=== PATIENT | female | born 1940 | race Caucasian/White ===

== ENCOUNTER 2020-10-05 12:18 | Emergency (ER) | payer MEDICARE ==
--- NOTE | 2020-10-05 13:36 | ER Document Report ---
ED Medical Screen (RME) - General Chief Complaint: Pain All Over Stated Complaint: BODY PAIN,CONFUSION Time Seen by Provider: 10/05/20 13:23 - HPI Notes: Patient is a 80-year-old female with a history of CABG, mechanical valve repl acement, scleroderma, BLACK, and diabetes who presents with diffuse body aches and back pain that has been worsening in the last couple days and is no longer being managed with her pain medication. Patient also reports chest discomfort, shortness of breath and increased confusion that has been worsening for the past couple of weeks. Patient is visiting from [place] and has been in contact with her PCP. Her PCP is concerned about ALS and would like a nerve conduction study done. Patient denies abdominal pain, vomiting and diarrhea. Physical Exam - Vital signs Vitals: Temp Pulse Resp BP Pulse Ox 97.5 F 85 16 121/63 100 10/05/20 12:42 10/05/20 12:42 10/05/20 12:42 10/05/20 12:42 10/05/20 12:42 - Respiratory Respiratory status: No respiratory distress Breath sounds: Normal - Cardiovascular Rhythm: Regular Heart sounds: Normal auscultation Course - Re-evaluation Re-evalutation: I have greeted and performed a rapid initial assessment of this patient. A comprehensive ED assessment and evaluation of the patient, analysis of test results and completion of medical decision making process will be conducted by an additional ED providers. - Vital Signs Vital signs: Temp Pulse Resp BP Pulse Ox 97.5 F 85 16 121/63 100 10/05/20 12:42 10/05/20 12:42 10/05/20 12:42 10/05/20 12:42 10/05/20 12:42
--- NOTE | 2020-10-05 14:11 | RADIOLOGY REPORT (SQ) ---
EXAM DESCRIPTION: CHEST SINGLE VIEW IMAGES COMPLETED DATE/TIME: 10/05/2020 12:51 pm REASON FOR STUDY: shortness of breath COMPARISON: None. EXAM PARAMETERS: NUMBER OF VIEWS: One view. TECHNIQUE: Single frontal radiographic view of the chest acquired. RADIATION DOSE: NA LIMITATIONS: None. FINDINGS: LUNGS AND PLEURA: No opacities, masses or pneumothorax. No pleural effusion. MEDIASTINUM AND HILAR STRUCTURES: Postoperative changes in the mediastinum. No mediastinal mass or a denopathy. HEART AND VASCULAR STRUCTURES: Valve replacement and postoperative changes of CABG. Heart has normal size. No pulmonary vascular congestion. BONES: No acute findings. HARDWARE: None in the chest. OTHER: No other significant finding. IMPRESSION: NO ACUTE RADIOGRAPHIC FINDING IN THE CHEST. TECHNICAL DOCUMENTATION: JOB ID: [id number] 2010 [employer]- All Rights Reserved Reading location - IP/workstation name: [email or web address]
[2020-10-05 14:26] LABS: ABSOLUTE EOSINOPHILS # (AUTO) 0.1 10^3/uL (0.0-0.6); ABSOLUTE LYMPHOCYTES (AUTO) 0.9 10^3/uL (0.5-4.7); ABSOLUTE MONOCYTES (AUTO) 0.3 10^3/uL (0.1-1.4); ABSOLUTE NEUT (AUTO) 2.5 10^3/uL (1.7-8.2); BASOPHILS % (AUTO) 1.1 % (0-2); EOSINOPHILS % (AUTO) 1.5 % (0-6); HEMATOCRIT 36.8 % (36.0-47.0); HEMOGLOBIN 12.8 g/dL (12.0-15.5); LYMPHOCYTES % (AUTO) 23.4 % (13-45); MEAN CORPUSCULAR HEMOGLOBIN 32.8 pg (27.0-33.4); MEAN CORPUSCULAR HGB CONC 34.7 g/dL (32.0-36.0); MEAN CORPUSCULAR VOLUME 95 fl (80-97); MONOCYTES % (AUTO) 8.2 % (3-13); RED BLOOD COUNT 3.89 10^6/uL (3.72-5.28); RED CELL DISTRIBUTION WIDTH 16.2 % (11.5-14.0); SEGMENTED NEUTROPHILS % (AUTO) 65.8 % (42-78); TOTAL CELLS COUNTED % (AUTO) 100 %; WHITE BLOOD COUNT 3.7 10^3/uL (4.0-10.5)
[2020-10-05 14:32] LABS: ALBUMIN 3.8 g/dL (3.5-5.0); ALKALINE PHOSPHATASE 95 U/L (38-126); ANION GAP 7 (5-19); ASPARTATE AMINO TRANSFERASE 50 U/L (14-36); BILIRUBIN,TOTAL 1.8 mg/dL (0.2-1.3); BLOOD UREA NITROGEN 31 mg/dL (7-20); CALCIUM 9.4 mg/dL (8.4-10.2); CARBON DIOXIDE 23 mmol/L (22-30); CHLORIDE 107 mmol/L (98-107); GLUCOSE 91 mg/dL (75-110); POTASSIUM 4.6 mmol/L (3.6-5.0); TOTAL PROTEIN 7.7 g/dL (6.3-8.2)
[2020-10-05 15:23] LABS: PLATELET COUNT 53 10^3/uL (150-450)
[2020-10-05 21:33] LABS: APPEARANCE,URINE SLIGHTLY-CLOUDY; BILIRUBIN,URINE NEGATIVE (NEGATIVE); COLOR,URINE YELLOW; GLUCOSE, URINE NEGATIVE (NEGATIVE); KETONES,URINE 20 mg/dL (NEGATIVE); LEUKOCYTE ESTERASE,URINE NEGATIVE (NEGATIVE); NITRITE,URINE NEGATIVE (NEGATIVE); PROTEIN,URINE NEGATIVE (NEGATIVE); URINE SPECIFIC GRAVITY 1.028
[2020-10-05] MEDS ORDERED: MORPHINE SULFATE 10 MG/ML INJ IV ONE (21:46)
--- NOTE | 2020-10-05 21:46 | ER Document Report ---
ED General - General Chief Complaint: Altered Mental Status Stated Complaint: BODY PAIN,CONFUSION Time Seen by Provider: 10/05/20 13:23 Notes: Patient is an 80-year-old female who comes emergency department for chief complaint of diffuse body aches, back pain, chest pain, vague shortness of breath, and increased difficulty with memory and episodes of confusion. states this has been much more noticeable over the past week or so. Patient has a history of BLACK and recently had ascites (this resolved and has not returned, currently on diuretics, somewhat recently had abdominocentesis). She also has a history of CABG, mechanical heart valve, scleroderma, and diabetes. Patient states that they contacted their provider back home, and they are currently visiting from [place] and came a few weeks ago, she states that they were concerned about family history of polymyositis, possible ALS, and want nerve conduction studies done and electromyography (EMG). Past Medical History - General Information source: Patient - Social History Smoking Status: Never Smoker Chew tobacco use (# tins/day): No Frequency of alcohol use: None Lives with: Family Family History: Reviewed & Not Pertinent Patient has homicidal ideation: No - Past Medical History Cardiac Medical History: Reports: Hx Coronary Artery Disease, Hx DVT Endocrine Medical History: Reports: Hx Diabetes Mellitus Type 2 Skin Medical History: Reports Other - Scleroderma Past Surgical History: Reports: Hx Cardiac Catheterization, Hx Coronary Artery Bypass Graft - Immunizations Hx Diphtheria, Pertussis, Tetanus Vaccination: Yes Review of Systems - Review of Systems Constitutional: See HPI EENT: No symptoms reported Cardiovascular: See HPI Respiratory: See HPI Gastrointestinal: No symptoms reported Genitourinary: No symptoms reported Female Genitourinary: No symptoms reported Musculoskeletal: See HPI Skin: No symptoms reported Hematologic/Lymphatic: No symptoms reported Neurological/Psychological: No symptoms reported Physical Exam - Vital signs Vitals: Temp Pulse Resp BP Pulse Ox 97.5 F 85 16 121/63 100 10/05/20 12:42 10/05/20 12:42 10/05/20 12:42 10/05/20 12:42 10/05/20 12:42 - Notes Notes: GENERAL: Alert, interacts well. No acute distress. HEAD: Normocephalic, atraumatic. EYES: Pupils equal, round, and reactive to light. Extraocular movements intact. ENT: Oral mucosa moist, tongue midline. Oropharynx unremarkable. Airway patent. NECK: Full range of motion. Supple. Trachea midline. No lymphadenopathy. LUNGS: Clear to auscultation bilaterally, no wheezes, rales, or rhonchi. No respiratory distress. Non-tender chest wall. HEART: Regular rate and rhythm. No murmur ABDOMEN: Soft, non-tender. Non-distended. Bowel sounds present in all 4 quadrants. GENITOURINARY: Deferred EXTREMITIES: Moves all 4 extremities spontaneously. No edema, normal radial and dorsalis pedis pulses bilaterally. No cyanosis. BACK: no cervical, thoracic, lumbar midline tenderness. No saddle anesthesia, normal distal neurovascular exam. Moves all extremities in full range of motion. NEUROLOGICAL: Alert and oriented x3. Normal speech. Cranial nerves II through XII grossly intact. Strength 5/5 in all extremities. PSYCH: Patient speaks anxiously but otherwise unremarkable SKIN: Warm, dry, normal turgor. No rashes or lesions noted. Course - Re-evaluation Re-evalutation: Patient is alert and well-appearing although she speaks anxiously. Symptoms are somewhat vague, vital signs unremarkable, physical exam unremarkable. CBC shows borderline leukopenia, some thrombocytopenia, chemistry nonspecific, urinalysis concentrated. Troponin negative. Ammonia checked in triage unremarkable. Chest x-ray unremarkable. CT of the head reviewed and unremarkable. D-dimer was performed because of patient's recent travel, reports shortness of breath and weakness, history of DVT. This was elevated, as result CT was performed which shows no acute findings. I did discuss the findings with them. I discussed overall work-up at length. They are still requesting that we perform nerve conduction studies and electromyography. I explained that unfortunately we do not have this available and this is by referral with primary care to specialty. I did discuss with Dr. Bales. I discussed the patient, decision was made to treat with steroids for her generalized body aches, she will follow-up with her primary care closely for additional monitoring and testing, she return for any concerning or worsening symptoms which were discussed. They stated understanding and agreement, requested copy of her work- up here and this was provided. - Vital Signs Vital signs: Temp Pulse Resp BP Pulse Ox 97.5 F 85 10 L 106/54 L 95 10/05/20 12:42 10/05/20 12:42 10/06/20 00:31 10/06/20 00:30 10/06/20 00:31 - Laboratory Results Result Diagrams: 10/05/20 14:03 10/05/20 14:03 Laboratory Results Interpreted: 10/05/20 10/05/20 10/05/20 14:03 14:03 19:00 WBC 3.7 L RDW 16.2 H Plt Count 53 L D-Dimer Sodium 136.8 L BUN 31 H Est GFR (MDRD) Non-Af 57 L Total Bilirubin 1.8 H AST 50 H Ammonia < 8.7 L Urine Ketones Urine Blood Urine Urobilinogen 10/05/20 10/05/20 19:00 22:05 WBC RDW Plt Count D-Dimer 3.27 H Sodium BUN Est GFR (MDRD) Non-Af Total Bilirubin AST Ammonia Urine Ketones 20 H Urine Blood SMALL H Urine Urobilinogen 2.0 H Critical Laboratory Results Reviewed: No Critical Results - Radiology Results Critical Radiology Results Reviewed: No Critical Results - EKG Interpretation by Me Additional EKG results interpreted by me: EKG shows a sinus rhythm at a rate of 75, QTC 434, flattened T waves in lead III but no T wave inversions or ST segment changes in consecutive leads Discharge - Discharge Clinical Impression: Body aches, Weakness, Shortness of breath, Poor short term memory Condition: Stable Disposition: HOME, SELF-CARE Additional Instructions: Your work-up shows some dehydration but your remaining tests and imaging do not show any concerning findings. We have started you on steroids hoping to improve your pain and general symptoms. Please follow close with your primary care provider especially for referral and additional testing including possible nerve conduction tests and electromyography as we discussed. Return for any concerning symptoms including severe worsening pain, fever, passing out, difficulty breathing, or any other concerning symptoms. Prescriptions: Prednisone [Deltasone 20 mg Tablet] 2 tab PO DAILY 5 Days #10 tablet
[2020-10-05] MEDS ORDERED: NORMAL SALINE 1000 ML 1,000 ML IV ONE (21:59)
--- NOTE | 2020-10-06 00:27 | RADIOLOGY REPORT (SQ) ---
EXAM DESCRIPTION: CT HEAD WITHOUT IV CONTRAST COMPLETED DATE/TME: 10/05/2020 23:56 CLINICAL HISTORY: 80 years, Female, confusion, weakness COMPARISON: None. TECHNIQUE: 290 Images stored on PACS. All CT scanners at this facility use dose modulation, iterative reconstruction, and/or weight based dosing when appropriate to reduce radiation dose to as low as reasonably achievable (ALARA). [facility]: Dose Right [facility]: CareDose [facility]: Dose Right [facility]: Teradose 4D [facility]: [employer]-Trianz LIMITATIONS: None. FINDINGS: Globes are intact. Paranasal sinuses and mastoid air cells are well aerated. No displaced or depressed skull fracture. No acute intracranial hemorrhage. CT is limited for evaluation of acute infarct. There is no CT evidence for large or territorial acute infarct. No mass or midline shift. Age-appropriate atrophy. Basal ganglia calcifications bilaterally IMPRESSION: No acute intracranial abnormality TECHNICAL DOCUMENTATION: Quality ID # 436: Final reports with documentation of one or more dose reduction techniques (e.g., Automated exposure control, adjustment of the mA and/or kV according to patient size, use of iterative reconstruction technique) copyright 2011 [employer]- All Rights Reserved
[2020-10-06 00:33] VITALS: BP 106/54
--- NOTE | 2020-10-06 00:33 | RADIOLOGY REPORT (SQ) ---
EXAM DESCRIPTION: CTA CHEST CLINICAL HISTORY: 80 years Female; short of breath, chest pain TECHNIQUE: CT angiogram of the chest using intravenous contrast.. MIP reconstructions were performed. All CT scans at this facility use dose modulation, iterative reconstruction, and/or weight based dosing when appropriate to reduce radiation dose to as low as reasonably achievable. COMPARISON: None. FINDINGS: Chest: Vascular: Exam is of diagnostic quality. There is no evidence of bony artery embolization bilaterally. A sending thoracic aorta is prominent and measures 3.4 cm. Descending thoracic aorta has scattered plaque and measures 2.3 cm. No dissection. There is postsurgical change of CABG. Lungs: Volume loss is present in the lung bases posteriorly. No focal consolidation. No pneumothorax. No pleural effusion. No pulmonary nodules or masses. Mediastinum: Calcifications are present aortic aortic valve. There is been previous CABG. Heart size is normal. Small sliding hiatal hernia. No mediastinal or hilar lymphadenopathy. Bones and soft tissues: Wedging of T8, T9, T11 is noted. There is ossification at the T11-12 and T12-L1 disc spaces. No acute fracture is noted. Sternum is healed. Soft tissues of the chest wall are unremarkable. Upper Abdomen: Multiple calcifications are present in the liver and spleen consistent with previous granulomatous infection. The spleen is enlarged. The liver may be small. Probable right renal cyst. IMPRESSION: 1. No pulmonary artery embolization. 2. Evidence of previous granulomatous infection. 3. Chronic compression fractures in the spine. 4. Splenomegaly.
[2020-10-06] MEDS ORDERED: MORPHINE SULFATE 10 MG/ML INJ IV ONE (00:37)
[2020-10-06] MEDS ORDERED: METHYLPREDNISOLONE INJ 125 MG/2 ML SDV IV ONE (00:50)
--- NOTE | 2020-10-07 00:18 | EKG REPORT ---
SEVERITY:- ABNORMAL ECG - SINUS RHYTHM CONSIDER ANTEROSEPTAL INFARCT : Confirmed by: González Rubin 07-Oct-2020 00:16:39
== END 2020-10-06 01:10 | disposition home or self-care (01) ==
LOC: ER 12:18
DX: M48.50XA Collapsed vertebra, not elsewhere classified, site unspecified, initial encounter for fracture (principal); R41.3 Other amnesia; R53.1 Weakness; M54.9 Dorsalgia, unspecified; R07.9 Chest pain, unspecified; R06.02 Shortness of breath; R41.0 Disorientation, unspecified; D69.6 Thrombocytopenia, unspecified; R79.89 Other specified abnormal findings of blood chemistry; K75.81 Nonalcoholic steatohepatitis (NASH); I25.10 Atherosclerotic heart disease of native coronary artery without angina pectoris; E11.9 Type 2 diabetes mellitus without complications; Z79.899 Other long term (current) drug therapy; Z98.890 Other specified postprocedural states; Z95.5 Presence of coronary angioplasty implant and graft; Z95.2 Presence of prosthetic heart valve; Z86.718 Personal history of other venous thrombosis and embolism
CPT/HCPCS: 93005; 96376; 99285; 96361; 96374; 96375; 36415; 82140; 85025; 80053; 81001; 84484; 85379; 71045; 70450; 71275; 93010; J2930; J2270 ×2; J7030